=== PATIENT | male | born 1945 | race Caucasian/White ===

== ENCOUNTER 2019-07-19 07:31 | Inpatient (IN) ==
--- NOTE | 2019-07-19 07:49 | History & Physical Report ---
Date of Encounter: 07/19/19 Time of Encounter: 07:48 24 Hour HP Update - Instructions Instructions: If the History and Physical is less than 30 days old and was completed prior to A.M. admission and or procedure and has NOT been updated on calendar day of procedure please complete this update prior to performing procedure. - Update Patient reports changes in Medical Condition: No Changes in examination, assessment, or condition: No Changes in Medication: No Preop tests/diagnostics Reviewed: Yes Surgery Remains Indicated: Yes Consent for Planned Operative Procedure(s) Verified: Yes - Pre-Operative Checklist Preoperative Checklist Indicated: No Prophylactic Antibiotic Ordered: Yes Is VTE Prophylaxis Indicated?: Yes
[2019-07-19] MEDS ORDERED: Albuterol 2.5 MG/3 ML NEBULIZER IH ONE (07:51)
[2019-07-19] MEDS ORDERED: CeFAZolin Syr 2,000MG/20 ML 2,000 MG/20 ML SYRINGE IVPB ONE (07:51)
[2019-07-19] MEDS ORDERED: ROPIVACAINE/PF/NS 0.25% 1 EACH SYRINGE INTRAART ONE (07:55)
[2019-07-19] MEDS ORDERED: Ropivacaine/PF 0.5% 30 ML VIAL ONE (07:55)
[2019-07-19] MEDS ORDERED: Ringers Solution, Lactated 1,000 ML IVC SCH ×2 (08:00→11:54)
[2019-07-19] MEDS ORDERED: Famotidine 20 MG/2 ML VIAL IVP ONE (08:15)
--- NOTE | 2019-07-19 08:15 | Anesthesia Evaluation PreOp ---
Date of Encounter: 07/19/19 Time of Encounter: 08:15 - Past History Planned Operation: R-total shoulder REVERSE & Open Biceps Cardiac History: HTN, Hyperlipidemia, Arrhythmia ("irregular heartbeat"/Paroxysmal tachycardia) Pulmonary History: Smoker (1PPD X 60yrs) [employer] History: Denies Any Significant HX Other Medical History: Diabetes Type II (Denies but states he is HYPOglycemic), GERD, Other (Hx Divertics) Anesthesia History: No Prior Anesthetic Complications, Past Anesthesia (Colonoscopy w/diverticulosis, L-IHR, Excision R-shoulder, BCC excisions) Medications and Allergies Calcium Carbonate [Calcium] 500 mg PO DAILY 07/19/19 [History] Diltiazem HCl [Cardizem LA] 240 mg PO DAILY 07/19/19 [History] Naproxen [EC-Naproxen] 500 mg PO BID PRN 07/19/19 [History] Pravastatin Sodium [Pravachol] 80 mg PO DAILY 07/19/19 [History] Ranitidine HCl [Zantac] 300 mg BID 07/19/19 [History] hydroCHLOROthiazide [Hydrochlorothiazide] 25 mg PO DAILY 07/19/19 [History] Allergy/AdvReac Type Severity Reaction Status Date / Time No Known Allergies Allergy Verified 07/17/19 09:11 - Meds/Allergy Pre-op Review Medications Reviewed: Yes Allergies Reviewed: Yes Beta Blockers on Current Med List: No Anesthesia Results - Labs Laboratory Tests 05/11/19 07/17/19 07/17/19 10:00 09:34 09:34 WBC 8.7 Hgb 16.1 Hct 48.2 Plt Count 201 PT 12.4 H INR 1.1 APTT 36.0 Sodium Potassium Chloride Carbon Dioxide BUN Est GFR (Non-Af Amer) Glucose 101 07/17/19 09:34 WBC Hgb Hct Plt Count PT INR APTT Sodium 139 Potassium 3.8 Chloride 106 Carbon Dioxide 27 BUN 22 Est GFR (Non-Af Amer) > 60 Glucose - Imaging EKG: report reviewed (66bpm - SR w/freq. Supraventricular premature complexes. Possible RV conduction delay. Moderate ST depresion) Anesthesia Exam O2 Sat Height 1.7 m Weight 71.214 kg O2 Sat by Pulse Oximetry 96 Vital Signs Temp Pulse Resp BP Pulse Ox 98.3 F 58 18 148/80 96 07/19/19 07:51 07/19/19 07:51 07/19/19 07:51 07/19/19 07:51 07/19/19 07:51 Height: 5'7" Weight: 157# BMI = 25 NPO (# of Hours): MNOc - HEENT Pupil (Motor): Pupils equal, EOMI Mallampati: II Teeth: Edentulous Oral Opening: Greater than 3 - [employer] LOC: Oriented [employer] Motor: Normal RUE, Normal LUE, Normal RLE, Normal LLE, Normal Face [employer] Sensory: Normal: RUE, LUE, RLE, LLE, Face - Cardiac Rhythm: Regular Murmur: None - Pulmonary Breath Sounds: bilateral Clear Respiratory Effort: Symmetrical Anesthesia Assess/Plan ASA Score: 3 Level of consciousness: Cooperative, Oriented, Tranquil Anesthetic Plan: General, Regional Nerve Block Regional Nerve Block Plan: Supraclavicular Monitoring Plan: Standard Monitors Recovery Plan: PACU Anes Supervising Prov Stmt: Pt seen/evaluated, R&B discussed, questions answered and consent obtained. Emmanuel Quiles MD
[2019-07-19] MEDS ORDERED: Acetaminophen IV 1,000 MG/100 ML INFUS..BTL IVPB ONE (08:16)
[2019-07-19] MEDS ORDERED: Pregabalin 75 MG CAPSULE PO ONE (08:16)
[2019-07-19] MEDS ORDERED: *HR* HYDROmorphone 2 MG TABLET PO PRN (08:17)
[2019-07-19] MEDS ORDERED: *HR* Labetalol 20 MG/4 ML SYRINGE IVP PRN (08:17)
[2019-07-19] MEDS ORDERED: *HR* OxyCODONE Immed Rel 5 MG TABLET PO PRN ×2 (08:17→11:54)
[2019-07-19] MEDS ORDERED: *HR* HYDROmorphone (PF) 1 MG/ML SYRINGE IVP PRN (08:17)
[2019-07-19] MEDS ORDERED: *HR* Promethazine 25 MG/ML VIAL IVP PRN (08:20)
[2019-07-19] MEDS ORDERED: *HR* Propofol 200 MG/20 ML VIAL IVP ONE (08:58)
[2019-07-19] MEDS ORDERED: *HR* Midazolam HCl 2 MG/2 ML VIAL ONE (09:11)
[2019-07-19] MEDS ORDERED: Ethanol\\Acetic Acid\\Na Ace\\Ben 1,000 ML IRRIG.SOLN IR ONE (09:27)
--- NOTE | 2019-07-19 09:33 | Anesthesia Procedures ---
Date of Encounter: 07/19/19 Time of Encounter: Procedures: Anesthesia - Nerve Block Procedure Date: 07/19/19 Time: :20 Surgical Procedure: right total shoulder replacement Checklist: Correct Patient Identifier, Correct procedure, History checked Correct side: Right Blood Thinner: No Monitor Applied: EKG, BP, Pulse Oximetry Supplemental Oxygen via Nasal Cannula (L/min): 2 Sedation: Versed (mg): 2 Indication: Post Op Analgesia Block Type: Supraclavicular Catheter placed: No Sterile Technique: Yes Ultrasound used: Yes Anatomy identified: Yes Visual spread of Local: Yes Blood on Needle Aspiration: No Smooth Injection of Local: Yes Pain with Injection of Local: No Prep: Chlorhexadine Needle: 22 x 50 mm Stimuplex Local: Ropivacaine (0.5% ropivacaine) Volume (cc): 30 Number of Attempts: 1 Complications: None/effective block Vitals: see nursing vitals
[2019-07-19] MEDS ORDERED: Ondansetron 4 MG/2 ML VIAL ONE (10:05)
[2019-07-19] MEDS ORDERED: Dexamethasone 4 MG/ML VIAL ONE (10:05)
[2019-07-19] MEDS ORDERED: Lidocaine -MPF 2% 2 ML VIAL ONE (10:08)
[2019-07-19] MEDS ORDERED: EPHEDrine 50 MG/ML VIAL ONE (10:12)
--- NOTE | 2019-07-19 10:42 | Orthopedic Operative Note ---
Date of procedure: 07/19/19 Pre-op diagnosis: Shoulder cuff tear arthropathy biceps tear right Post-op diagnosis: same Procedure: Procedure: Total Shoulder Replacment Reverse, right Estimated blood loss: 50 cc Hardware: Metal and polyethylene replacement: Arthrex 28, +4 , 30 mm post glenoid baseplate, 4 locking 5.5 screw, 42+4 glenosphere, 10 [place] humeral stem, poly insert 3 Exam Under anesthesia: Full motion no instability Procedural Notes: Reparable rotator cuff tear patient with a biceps rupture tendon was not visible within the incision, decision was made not to go exploring for fear of causing more surgical trauma. Operative procedure: The patient was brought to the operating room and placed on the operating room table. After general anesthesia was administered the operative shoulder was examined. Findings were noted. The patient was placed in the modified beachchair position. All pressure points were padded appropriately. And the head was stabilized in the neutral position. The operative extremity was prepped and draped in the sterile surgical fashion. The patient received IV antibiotics prior to skin incision. A standard deltopectoral approach was made to the operative shoulder. Incision was made to the skin and subcutaneous tissue,hemo stasis was obtained with Bovie cautery. Using careful blunt dissection the cephalic vein was identified and mobilized medially. The deltopectoral interval was developed and the clavipectoral fascia was incised. The subscap was released off the lesser tuberosity and tagged with #2 FiberWire suture subscap was irreparable. Bicipital groove was opened up, the long head of the biceps was not identifiable within the groove. Decision was made not to dissect distally for fear of causing more surgical trauma. The humerus was dislocated patient noted to have irreparable tear supraspinatus tendon, and the humeral cut was made along the anatomic neck. Anterior and posterior Bankart retractors were placed to expose the glenoid. The glenoid guide was seated and the centering hole was made. It was reamed with the appropriate reamer. The baseplate was seated and secured with 4 locking 5.5 screw. The baseplate was irrigated and dried and the Glenosphere was seated and secured with the Ayala taper. The Ayala taper was tested and found to be secure, glenosphere fixation was secondarily secured with the central screw. The humerus was redislocated and prepared with the diaphyseal reamers, followed by a broaching process up to the appropriate size [place] stem in the patient's anatomic version. The metaphyseal reamer was then utilized. Trial reduction found the shoulder to be relocatable. Trial components were removed and the [place] stem was impacted in place in the patient's anatomic version. Trial reduction found the shoulder to be relocatable and stable with the appropriate 3 poly. Trial component was removed and the real implant was seated and secured the shoulder was reduced. The shoulder had excellent motion and excellent stability and no evidence of dislocation. The deep tissue was irrigated with pulse irrigation. The PA close the shoulder. The deltopectoral interval was closed with a running #1 PDS suture, subcutaneous tissue was irrigated and closed with 0 PDS suture, the skin was closed with Dermabond. The patient was placed in a sterile dressing, abduction brace and extubated. The patient was then transferred to the recovery room in stable condition. Anesthesia: GETA Surgeon: Jasbir Mcdowell Was there an family medicine physician assistant present: Yes Search Director: Marcello Porter Estimated blood loss (cc): 50 Condition: stable Disposition: PACU
--- NOTE | 2019-07-19 11:22 | Discharge Summary ---
Orders not resulted at time of discharge: Pending orders 07/19/19 10:41 Surgical Pathology [PTH] Routine Date of Encounter: 07/19/19 Time of Encounter: 16:30 - Discharge Diagnosis (1) Rotator cuff tear arthropathy of right shoulder Priority: Primary Status: Chronic (2) Tear of right biceps muscle Priority: Primary Status: Chronic Qualifiers: Encounter type: subsequent encounter Qualified Code(s): S46.211D - Strain of muscle, fascia and tendon of other parts of biceps, right arm, subsequent en counter (3) Status post total replacement of right shoulder Priority: Primary Status: Acute (4) HTN (hypertension) Priority: Secondary Status: Chronic Qualifiers: Hypertension type: unspecified Qualified Code(s): I10 - Essential (primary) hypertension (5) Paroxysmal tachycardia Priority: Secondary Status: Chronic (6) Nicotine dependence Priority: Secondary Status: Chronic Qualifiers: Nicotine product type: unspecified Substance use status: uncomplicated Qualified Code(s): F17.200 - Nicotine dependence, unspecified, uncomplicated (7) HLD (hyperlipidemia) Priority: Secondary Status: Chronic Qualifiers: Hyperlipidemia type: unspecified Qualified Code(s): E78.5 - Hyperlipidemia, unspecified (8) GERD (gastroesophageal reflux disease) Priority: Secondary Status: Chronic Qualifiers: Esophagitis presence: esophagitis presence not specified Qualified Code(s): K21.9 - Gastro-esophageal reflux disease without esophagitis - Hospital Course Hospital course: Mr. Chugn is a 74 year old male s/p Total Shoulder Replacment Reverse, right [Shoulder cuff tear arthropathy biceps tear right] 07/19/19 Patient seen at bedside. Son, [id number], and spouse at bedside. A&Ox3 Dressing and incision c/d/i No calf tenderness, erythema, or warmth. Neurovascularly intact b/l LE. Labwork, vitals, and medications reviewed. Pain control: Adequate Participating in therapy. All questions and concerns addressed. Educated on use of incentive spirometer, ambulation, and hydration. Patient educated on post-operative restrictions and care. Addressed: see above. The patient's postoperative course was uneventful. Progressed from intravenous analgesic needs to oral analgesic needs only. Remained neurovascularly intact and mobilized satisfactorily. All radiographic studies were satisfactory. Patient course and disposition discussed with Dr. Mcdowell. Patient is discharged to home with plan for rehabilitation and outpatient orthopedic follow up has been arranged. - Time Spent with Patient Total time spent providing and/or coordinating discharge services: - Discharge Medications Prescriptions: New Docusate Sodium [Colace] 100 mg PO BID 5 Days #10 capsule Acetaminophen [Non-Aspirin Extra Strength] 500 mg PO Q6H PRN 7 Days #28 tablet PRN Reason: Mild To Moderate Pain OxyCODONE Immed Rel [Roxicodone 5 MG] 5 mg PO Q6HR PRN 5 Days #20 tablet PRN Reason: Severe Pain Continued Diltiazem HCl [Cardizem LA] 240 mg PO DAILY hydroCHLOROthiazide [Hydrochlorothiazide] 25 mg PO DAILY Naproxen [EC-Naproxen] 500 mg PO BID PRN PRN Reason: Pain Ranitidine HCl [Zantac] 300 mg BID Pravastatin Sodium [Pravachol] 80 mg PO DAILY Calcium Carbonate [Calcium] 500 mg PO DAILY Home Medications: Acetaminophen [Non-Aspirin Extra Strength] 500 mg PO Q6H PRN 7 Days #28 tablet 07/19/19 [Rx] Calcium Carbonate [Calcium] 500 mg PO DAILY 07/19/19 [History] Diltiazem HCl [Cardizem LA] 240 mg PO DAILY 07/19/19 [History] Docusate Sodium [Colace] 100 mg PO BID 5 Days #10 capsule 07/19/19 [Rx] Naproxen [EC-Naproxen] 500 mg PO BID PRN 07/19/19 [History] OxyCODONE Immed Rel [Roxicodone 5 MG] 5 mg PO Q6HR PRN 5 Days #20 tablet 07/19/19 [Rx] Pravastatin Sodium [Pravachol] 80 mg PO DAILY 07/19/19 [History] Ranitidine HCl [Zantac] 300 mg BID 07/19/19 [History] hydroCHLOROthiazide [Hydrochlorothiazide] 25 mg PO DAILY 07/19/19 [History] Allergies/Adverse Reactions: Allergy/AdvReac Type Severity Reaction Status Date / Time No Known Allergies Allergy Verified 07/17/19 09:11 Date of admission: 07/19/19 Primary care physician: Rabia Dominique CNP Discharging clinician: Jasbir Mcdowell Anticipated date of discharge: 07/19/19 - VTE Documentation of Mechanical Device: Venous foot pump, device - Patient Status Disposition: Home, Self-Care Condition: Good Functional capacity at discharge: independent ambulation Overall status at discharge: patient is progressing back to baseline - Discharge Instructions Follow Up With: Jasbir Mcdowell MD [Partnered Physician] - 08/16/19 5:15 pm Angi Childs CNP [Advanced Practice Nurse] - 07/27/19 3:00 pm Rabia Dominique CNP [Primary Care Provider] - Additional Instructions: Discharge Instructions: Total Shoulder Please call [facility] ([phone]), your Primary Care Physician, or report to the Emergency Room if you have any of the following symptoms: Nausea, vomiting, fever greater that 101.5, swelling, chest pain, shortness of breath, increased pain/redness/drainage/odor for your incision site, numbness/tingling, or any other concerning symptoms. ACTIVITY: Always keep your arm in the sling. Do not raise your arm away from your body. Do not use your arm to help with getting in or out of bed. No weig ht bearing permitted. Only perform those exercises given to you by your therapist. Incentive Spirometer 10 times an hour. MEDICATIONS: Upon discharge resume your home medications. Take all the medications as prescribed. Take a stool softener if taking narcotic pain medications. Stool softeners are only effective if you drink enough fluids. Drink 6-8 glass of water or fluids a day, unless this is not allowed for another health problem. Despite using stool softeners, if you haven't had a bowel movement in 3 days, please switch to a gentle laxative. Gentle laxatives are sold over the counter. You should have a bowel movement within 24 hours, if not call the office. You will be discharged from the hospital with a prescription for pain medication. You are encouraged to decrease the use of narcotic pain medication as tolerated. Should you require a refill, please call the office. [facility] prescribes narcotic pain medication for only 4-6 weeks after surgery. If you require pain medication beyond this time period, you may be referred to your Primary Care Physician or to the Pain Clinic for further evaluation. Plan ahead for refills on pain medication as many narcotics either need to be picked up at the office or mailed. It is best to call 48-72 hours in advance of needing a prescription refill so you don't run out of medication. To help control the post-operative pain, you may take NSAIDs (Aleve,Advil, Motrin, Ibuprofen, Naprosyn) or Tylenol as prescribed on the bottle in addition to the pain medication. WOUND CARE: Leave the dressing on for 7-10 days. You may change the dressing if it becomes saturated greater than 50%. Do not get the dressing wet at anytime. Wash your hands with antibacterial soap, rinse and dry prior to any wound care. If you have lacey the visiting nurse or rehab facility can remove the stapes 10-14 days after surgery and place steri-strips across the wound. Leave the steri-strips in place until they fall off on their own. You may let water from the shower run on top of the steri-strips. If you do not have a visiting nurse or rehab facility, you will need to return to the office at 10-14 days for the lacey to be removed. If you have itching or redness around the dressing call the office. FOLLOW-UP: Please follow up with your surgeon in the orthopedic clinic, as scheduled - Diet and Activity Activity: as per physical therapy Diet: advance to your usual diet
[2019-07-19 11:42] LABS: Hemoglobin 14.7 g/dL (12.9-16.9)
--- NOTE | 2019-07-19 11:47 | Anesthesia Evaluation Post Op ---
Date of Encounter: 07/19/19 Time of Encounter: 11:37 - Vital Signs Vital Signs: vss - Lungs Lungs: Clear Ascult./Percussion - Airway Airway: Non-obstructed - Mental Status Mental Status: Alert & Oriented, Answers Appropriately - Pain Pain Scale: 0 Pain Scale used: Numeric (1 - 10) - Nausea Vomiting Nausea Vomiting: Not Present - Hydration Hydration: Ice chips - Discharge PostOp Status: Transfer Patient to floor
[2019-07-19] MEDS ORDERED: hydroCHLOROthiazide 25 MG TABLET PO SCH (11:54)
[2019-07-19] MEDS ORDERED: Diltiazem CD (24hr) 240 MG CAPSULE PO SCH (11:54)
[2019-07-19] MEDS ORDERED: Famotidine 20 MG TABLET PO SCH ×2 (11:54→21:00)
[2019-07-19] MEDS ORDERED: MOM Conc 10 ML UD.LIQ PO PRN (11:54)
[2019-07-19] MEDS ORDERED: Naloxone 0.4 MG/ML INJ IVP PRN (11:54)
[2019-07-19] MEDS ORDERED: Temazepam 15 MG CAPSULE PO PRN (11:54)
[2019-07-19] MEDS ORDERED: traMADol 50 MG TABLET PO PRN (11:54)
[2019-07-19] MEDS ORDERED: Sennosides 8.6 MG TABLET PO PRN (11:54)
[2019-07-19] MEDS ORDERED: Ondansetron 4 MG/2 ML VIAL IVP PRN (11:54)
[2019-07-19] MEDS ORDERED: *HR* OxyCODONE/APAP 5/325 TABLET PO PRN (11:54)
[2019-07-19] MEDS ORDERED: Dextrose Gel 15 GM/37.5 ML TUBE PO PRN ×2 (12:12)
[2019-07-19] MEDS ORDERED: *HR* Dextrose 50 % in Water (Syg) 50 ML SYRINGE IVP PRN (12:12)
[2019-07-19] MEDS ORDERED: D5% in Water 1,000 ML IVC PRN (12:12)
[2019-07-19 14:52] VITALS: BP 103/64
[2019-07-19] MEDS ORDERED: Insulin LISPRO 300 UNITS/3 ML VIAL SQ SCH ×2 (16:30→21:00)
[2019-07-19] MEDS ORDERED: *HR* Enoxaparin 30 MG/0.3 ML SYRINGE SQ SCH ×2 (18:00)
== END 2019-07-19 19:57 | disposition home or self-care (01) | DRG 483 ==
LOC: SAMDAY 07:31 → 3NENU 12:03
PROVIDERS: ADMIT Orthopaedic Surgery; ATTEND Orthopaedic Surgery

== ENCOUNTER 2022-07-04 08:04 | Inpatient (IN) ==
[2022-07-04] MEDS ORDERED: methylPREDNISolone 125 MG/2 ML VIAL IVP ONE (08:37)
[2022-07-04] MEDS: Ipratropium/Albuterol Neb 3 ML IH PRN ×2 (08:54→13:01)
[2022-07-04 08:58] LABS: Basophils # 0.1 K/mcL (0.0-0.2); Basophils % 0.6 %; Eosinophils # 0.1 K/mcL (0.0-0.6); Eosinophils % 1.3 %; Hemoglobin 14.9 g/dL (12.9-16.9); Immature Granulocytes % 0.6 % (0-4); Lymphocytes # 1.5 K/mcL (0.6-4.6); Lymphocytes % 15.5 %; Mean Corpuscular HGB Conc 33.9 g/dL (31.6-35.5); Mean Corpuscular Hemoglobin 29.2 pg (28.0-33.3); Mean Corpuscular Volume 86.3 fL (83.0-100.0); Mean Platelet Volume 10.8 fL (9.4-12.4); Monocytes % 10.7 %; Neutrophils # 6.9 K/mcL (1.6-8.9); Platelet Count 263 K/mcL (140-400); Red Cell Distribution Width 14.6 % (11.5-14.5); Segmented Neutrophils % 71.3 %; White Blood Count 9.7 K/mcL (4.3-11.1)
[2022-07-04] MEDS ORDERED: 0.9 % Sodium Chloride 500 ML IVC ONE (09:01)
[2022-07-04] MEDS ORDERED: Iopamidol - 370 500 ML MLS IVP ONE (09:02)
[2022-07-04 09:21] LABS: Albumin 3.9 g/dL (3.5-5.7); Albumin/Globulin Ratio 1.6 (1.1-2.2); Bilirubin,Direct 0.1 mg/dL (0.0-0.2); Bilirubin,Indirect 0.3 mg/dL (0.0-1.0); Bilirubin,Total 0.4 mg/dL (0.3-1.0); Calcium 9.2 mg/dL (8.6-10.3); Globulin 2.4 g/dL (2.4-3.5); Potassium 3.7 mEq/L (3.5-5.1); Total Protein 6.3 g/dL (6.4-8.9); Troponin I 0.03 ng/mL (< 0.04)
[2022-07-04] MEDS ORDERED: Cefepime HCl 2,000 MG in 0.9 % Sodium Chloride 10 ML IVP ONE (09:47)
[2022-07-04 10:04] LABS: INR 1.2; Prothrombin Time 13.5 Seconds (9.4-12.1)
[2022-07-04 10:07] LABS: VBG HCO3 27 mEq/L (21-27); VBG PCO2 52 mmHg (41-51); VBG PH 7.33 pH Units (7.32-7.42); VBG PO2 44 mmHg (25-50)
[2022-07-04] MEDS ORDERED: MetroNIDAZOLE 500 MG/100 ML 500 MG/100 ML BAG IVPB ONE (10:07)
[2022-07-04] MEDS ORDERED: Naloxone 0.4 MG/ML INJ IVP PRN (15:27)
[2022-07-04] MEDS ORDERED: D5% in Water 1,000 ML IVC PRN (15:33)
[2022-07-04] MEDS ORDERED: *HR* Dextrose 50 % in Water (Syg) 50 ML SYRINGE IVP PRN (15:33)
[2022-07-04] MEDS ORDERED: Dextrose Gel 15 GM/37.5 ML TUBE PO PRN ×2 (15:33)
[2022-07-04] MEDS: Piperacillin/Tazobactam 3.375 GM in 0.9 % Sodium Chloride Mini Bag 100 ML IVPB SCH ×2 (16:34→23:47)
[2022-07-04] MEDS: Insulin LISPRO 300 UNITS/3 ML VIAL SUBQ SCH (16:34)
[2022-07-04] MEDS: Pantoprazole 40 MG VIAL IVP SCH (16:34)
[2022-07-04] MEDS ORDERED: Potassium Phosphate 44 MEQ in 0.9 % Sodium Chloride 250 ML IVPB PRN (17:48)
[2022-07-04] MEDS ORDERED: Calcium Gluconate 1gm/50mL 1 GM/50 ML BAG IVPB PRN (17:48)
[2022-07-04 18:06] LABS: VBG Ionized Calcium 1.14 mmol/L (1.15-1.35)
[2022-07-04] MEDS ORDERED: Albuterol 2.5 MG/3 ML NEBULIZER IH PRN (18:43)
[2022-07-04] MEDS: Ipratropium/Albuterol Neb 3 ML IH SCH ×2 (19:59→20:04)
[2022-07-04 20:44] LABS: Estimated Average Glucose 131 mg/dl; Hemoglobin A1C 6.2 %
[2022-07-04] MEDS ORDERED: Insulin LISPRO 300 UNITS/3 ML VIAL SUBQ SCH (21:00)
[2022-07-04] MEDS: MethylPREDNISolone 40 MG/ML VIAL IVP SCH (23:47)
[2022-07-05] MEDS: Ipratropium/Albuterol Neb 3 ML IH SCH ×4 (03:47→21:57)
[2022-07-05 04:12] LABS: Basophils % 0.2 %; Immature Granulocytes % 0.8 % (0-4); Lymphocytes # 0.8 K/mcL (0.6-4.6); Lymphocytes % 12.8 %; Mean Corpuscular HGB Conc 33.2 g/dL (31.6-35.5); Mean Corpuscular Hemoglobin 28.6 pg (28.0-33.3); Mean Platelet Volume 10.8 fL (9.4-12.4); Monocytes # 0.2 K/mcL (0.0-1.3); Monocytes % 3.4 %; Neutrophils # 5.4 K/mcL (1.6-8.9); Platelet Count 215 K/mcL (140-400); Red Cell Distribution Width 14.6 % (11.5-14.5); Segmented Neutrophils % 82.8 %; White Blood Count 6.5 K/mcL (4.3-11.1)
[2022-07-05 04:13] LABS: Hemoglobin 12.3 g/dL (12.9-16.9)
[2022-07-05 04:16] LABS: VBG Ionized Calcium 1.09 mmol/L (1.15-1.35)
[2022-07-05 04:34] LABS: Alanine Aminotransferase 14 Units/L (7-52); Albumin 3.5 g/dL (3.5-5.7); Albumin/Globulin Ratio 1.5 (1.1-2.2); Alkaline Phosphatase 63 Units/L (34-104); Aspartate Amino Transferase 12 Units/L (13-39); BUN/Creatinine Ratio 24 (6-26); Bilirubin,Direct 0.1 mg/dL (0.0-0.2); Bilirubin,Indirect 0.4 mg/dL (0.0-1.0); Bilirubin,Total 0.5 mg/dL (0.3-1.0); Blood Urea Nitrogen 20 mg/dL (8-23); Calcium 8.5 mg/dL (8.6-10.3); Carbon Dioxide 24 mEq/L (23-29); Chloride 106 mEq/L (98-107); Globulin 2.3 g/dL (2.4-3.5); Glucose 162 mg/dL (70-105); Osmolality,Calculated 288 (280-300); Phosphorous 2.5 mg/dL (2.7-4.5); Potassium 4.3 mEq/L (3.5-5.1); Sodium 136 mEq/L (136-145); Total Protein 5.8 g/dL (6.4-8.9)
[2022-07-05] MEDS: MethylPREDNISolone 40 MG/ML VIAL IVP SCH ×3 (05:51→16:03)
[2022-07-05] MEDS: Piperacillin/Tazobactam 3.375 GM in 0.9 % Sodium Chloride Mini Bag 100 ML IVPB SCH ×2 (07:20→16:02)
[2022-07-05] MEDS: Pantoprazole 40 MG VIAL IVP SCH (08:32)
[2022-07-05] MEDS: Insulin LISPRO 300 UNITS/3 ML VIAL SUBQ SCH ×4 (08:41→20:42)
[2022-07-05] MEDS ORDERED: Potassium Phosphate 44 MEQ in 0.9 % Sodium Chloride 250 ML IVPB PRN (10:58)
[2022-07-05] MEDS ORDERED: Naloxone 0.4 MG/ML INJ IVP PRN (10:58)
[2022-07-05] MEDS ORDERED: Calcium Gluconate 1gm/50mL 1 GM/50 ML BAG IVPB PRN (10:58)
[2022-07-05] MEDS ORDERED: Ipratropium/Albuterol Neb 3 ML IH PRN (10:58)
[2022-07-05] MEDS ORDERED: Dextrose Gel 15 GM/37.5 ML TUBE PO PRN ×2 (10:58)
[2022-07-05] MEDS ORDERED: Albuterol 2.5 MG/3 ML NEBULIZER IH PRN (10:58)
[2022-07-05] MEDS ORDERED: *HR* Dextrose 50 % in Water (Syg) 50 ML SYRINGE IVP PRN (10:58)
[2022-07-05] MEDS ORDERED: GuaiFENesin Liq 200 MG/10 ML UDC PO PRN ×2 (10:58)
[2022-07-05] MEDS ORDERED: D5% in Water 1,000 ML IVC PRN (10:58)
[2022-07-05] MEDS ORDERED: Fluticasone Propionate Nasal 50 MCG/SPRAY BOTTLE NS PRN (10:58)
[2022-07-05] MEDS: DilTIAZem CD (24hr) 240 MG CAP.ER.24H PO SCH (12:31)
[2022-07-06] MEDS: MethylPREDNISolone 40 MG/ML VIAL IVP SCH ×5 (00:23→22:13)
[2022-07-06] MEDS: Piperacillin/Tazobactam 3.375 GM in 0.9 % Sodium Chloride Mini Bag 100 ML IVPB SCH ×3 (00:24→17:36)
[2022-07-06] MEDS: Ipratropium/Albuterol Neb 3 ML IH SCH ×4 (03:51→21:22)
[2022-07-06 04:03] LABS: Basophils % 0.1 %; Hematocrit 35.1 % (37.5-50.1); Hemoglobin 11.6 g/dL (12.9-16.9); Immature Granulocytes % 0.7 % (0-4); Lymphocytes # 0.9 K/mcL (0.6-4.6); Lymphocytes % 5.6 %; Mean Corpuscular Hemoglobin 28.8 pg (28.0-33.3); Mean Corpuscular Volume 87.1 fL (83.0-100.0); Mean Platelet Volume 11.2 fL (9.4-12.4); Monocytes # 0.5 K/mcL (0.0-1.3); Monocytes % 2.9 %; Neutrophils # 14.6 K/mcL (1.6-8.9); Platelet Count 208 K/mcL (140-400); Red Blood Count 4.03 M/mcL (4.19-5.50); Segmented Neutrophils % 90.7 %
[2022-07-06 04:09] LABS: White Blood Count 16.1 K/mcL (4.3-11.1)
[2022-07-06 04:25] LABS: Albumin 3.3 g/dL (3.5-5.7); Albumin/Globulin Ratio 1.7 (1.1-2.2); Bilirubin,Direct 0.1 mg/dL (0.0-0.2); Bilirubin,Indirect 0.2 mg/dL (0.0-1.0); Bilirubin,Total 0.3 mg/dL (0.3-1.0); Calcium 8.8 mg/dL (8.6-10.3); Magnesium 2.2 mg/dL (1.6-2.6); Phosphorous 2.6 mg/dL (2.7-4.5); Total Protein 5.3 g/dL (6.4-8.9)
[2022-07-06] MEDS ORDERED: Pantoprazole 40 MG VIAL IVP SCH (06:30)
[2022-07-06] MEDS: Multivit/Ca/Min/Fe/FA 1 TAB TABLET PO SCH (08:49)
[2022-07-06] MEDS: DilTIAZem CD (24hr) 240 MG CAP.ER.24H PO SCH (08:49)
[2022-07-06] MEDS: Insulin LISPRO 300 UNITS/3 ML VIAL SUBQ SCH ×4 (09:27→22:13)
[2022-07-06] MEDS ORDERED: Gadolinium Contrast Agent (WT Based) IV PRN (16:37)
[2022-07-07] MEDS ORDERED: D5% in 0.45% NACL 1,000 ML IVC SCH (00:01)
[2022-07-07] MEDS: Piperacillin/Tazobactam 3.375 GM in 0.9 % Sodium Chloride Mini Bag 100 ML IVPB SCH ×4 (00:13→21:00)
[2022-07-07] MEDS: MethylPREDNISolone 40 MG/ML VIAL IVP SCH ×2 (03:25→13:30)
[2022-07-07] MEDS: Ipratropium/Albuterol Neb 3 ML IH SCH ×4 (03:40→22:12)
[2022-07-07 04:48] LABS: Basophils % 0.1 %; Hematocrit 34.6 % (37.5-50.1); Hemoglobin 11.4 g/dL (12.9-16.9); Lymphocytes # 1.1 K/mcL (0.6-4.6); Lymphocytes % 6.7 %; Mean Corpuscular HGB Conc 32.9 g/dL (31.6-35.5); Mean Corpuscular Hemoglobin 28.8 pg (28.0-33.3); Mean Corpuscular Volume 87.4 fL (83.0-100.0); Mean Platelet Volume 11.2 fL (9.4-12.4); Monocytes # 0.2 K/mcL (0.0-1.3); Monocytes % 1.5 %; Neutrophils # 14.5 K/mcL (1.6-8.9); Platelet Count 191 K/mcL (140-400); Red Blood Count 3.96 M/mcL (4.19-5.50); Red Cell Distribution Width 15.1 % (11.5-14.5); Segmented Neutrophils % 90.7 %
[2022-07-07 05:08] LABS: Albumin 3.2 g/dL (3.5-5.7); Albumin/Globulin Ratio 1.6 (1.1-2.2); Bilirubin,Direct 0.1 mg/dL (0.0-0.2); Bilirubin,Indirect 0.2 mg/dL (0.0-1.0); Bilirubin,Total 0.3 mg/dL (0.3-1.0); Calcium 8.5 mg/dL (8.6-10.3); Magnesium 2.3 mg/dL (1.6-2.6); Phosphorous 2.5 mg/dL (2.7-4.5); Potassium 4.2 mEq/L (3.5-5.1); Total Protein 5.2 g/dL (6.4-8.9)
[2022-07-07] MEDS: Multivit/Ca/Min/Fe/FA 1 TAB TABLET PO SCH ×2 (08:10→14:13)
[2022-07-07] MEDS: DilTIAZem CD (24hr) 240 MG CAP.ER.24H PO SCH (08:10)
[2022-07-07] MEDS: Insulin LISPRO 300 UNITS/3 ML VIAL SUBQ SCH ×4 (08:13→20:59)
[2022-07-07] MEDS ORDERED: Albuterol 2.5 MG/3 ML NEBULIZER IH PRN (08:29)
[2022-07-07] MEDS ORDERED: Ondansetron 4 MG/2 ML VIAL IVP PRN (08:29)
[2022-07-07] MEDS ORDERED: *HR* Propofol 200 MG/20 ML VIAL IVP ONE ×2 (10:19→12:32)
[2022-07-07] MEDS ORDERED: *HR* FentaNYL (PF) 100 MCG/2 ML VIAL ONE (10:20)
[2022-07-07] MEDS ORDERED: Ondansetron 4 MG/2 ML VIAL ONE (10:20)
[2022-07-07] MEDS ORDERED: Lidocaine -MPF 2% 5 ML VIAL ONE (10:20)
[2022-07-07] MEDS ORDERED: *HR* Rocuronium Bromide 50 MG/5 ML VIAL ONE (10:20)
[2022-07-07] MEDS ORDERED: *HR* Succinylcholine 200 MG/10 ML VIAL IVP ONE (10:20)
[2022-07-07] MEDS ORDERED: *HR* Metoprolol 5 MG/5 ML VIAL IVP ONE ×2 (11:55→12:02)
[2022-07-07] MEDS ORDERED: Levalbuterol Neb 1.25 MG/3 ML IH PRN (12:10)
[2022-07-07] MEDS ORDERED: *HR* Digoxin 0.5 MG/2 ML AMPUL IVP ONE (14:56)
[2022-07-07] MEDS: DilTIAZem 50 MG/50 ML IV.SOLN IVC SCH ×2 (17:42→22:20)
[2022-07-07] MEDS: Pantoprazole 40 MG VIAL IVP SCH (21:19)
[2022-07-08] MEDS: DilTIAZem 50 MG/50 ML IV.SOLN IVC SCH ×5 (03:04→23:51)
[2022-07-08] MEDS: Ipratropium/Albuterol Neb 3 ML IH SCH ×4 (04:24→22:18)
[2022-07-08] MEDS: Piperacillin/Tazobactam 3.375 GM in 0.9 % Sodium Chloride Mini Bag 100 ML IVPB SCH (05:47)
[2022-07-08 06:24] LABS: Basophils % 0.1 %; Hematocrit 36.2 % (37.5-50.1); Hemoglobin 11.8 g/dL (12.9-16.9); Immature Granulocytes % 0.7 % (0-4); Lymphocytes # 1.7 K/mcL (0.6-4.6); Lymphocytes % 10.4 %; Mean Corpuscular HGB Conc 32.6 g/dL (31.6-35.5); Mean Corpuscular Volume 88.9 fL (83.0-100.0); Mean Platelet Volume 11.3 fL (9.4-12.4); Monocytes # 0.8 K/mcL (0.0-1.3); Monocytes % 4.8 %; Neutrophils # 13.9 K/mcL (1.6-8.9); Platelet Count 196 K/mcL (140-400); Red Blood Count 4.07 M/mcL (4.19-5.50); Red Cell Distribution Width 15.6 % (11.5-14.5); White Blood Count 16.5 K/mcL (4.3-11.1)
[2022-07-08 06:44] LABS: Albumin 3.2 g/dL (3.5-5.7); Albumin/Globulin Ratio 1.7 (1.1-2.2); Bilirubin,Direct 0.1 mg/dL (0.0-0.2); Bilirubin,Indirect 0.3 mg/dL (0.0-1.0); Bilirubin,Total 0.4 mg/dL (0.3-1.0); Calcium 8.4 mg/dL (8.6-10.3); Globulin 1.9 g/dL (2.4-3.5); Magnesium 2.5 mg/dL (1.6-2.6); Phosphorous 2.4 mg/dL (2.7-4.5); Potassium 4.4 mEq/L (3.5-5.1); Total Protein 5.1 g/dL (6.4-8.9)
[2022-07-08] MEDS ORDERED: *HR* Digoxin 0.5 MG/2 ML AMPUL IVP ONE (07:28)
[2022-07-08] MEDS: Aspirin Enteric Coated 81 MG Tablet PO SCH (07:41)
[2022-07-08] MEDS: Pantoprazole 40 MG VIAL IVP SCH (07:41)
[2022-07-08] MEDS: Multivit/Ca/Min/Fe/FA 1 TAB TABLET PO SCH (07:41)
[2022-07-08] MEDS: Insulin LISPRO 300 UNITS/3 ML VIAL SUBQ SCH ×4 (07:41→20:49)
[2022-07-08] MEDS: DilTIAZem CD (24hr) 240 MG CAP.ER.24H PO SCH (07:41)
[2022-07-08] MEDS: predniSONE 20 MG TABLET PO SCH (07:41)
[2022-07-08] MEDS ORDERED: IVABRADINE HCL 7.5 MG TABLET PO SCH (11:00)
[2022-07-08] MEDS: Melatonin 3 MG TABLET PO SCH (22:01)
[2022-07-09] MEDS: DilTIAZem 50 MG/50 ML IV.SOLN IVC SCH (03:12)
[2022-07-09 03:15] LABS: Basophils % 0.2 %; Hematocrit 35.3 % (37.5-50.1); Hemoglobin 11.6 g/dL (12.9-16.9); Immature Granulocytes % 1.1 % (0-4); Lymphocytes # 2.6 K/mcL (0.6-4.6); Mean Corpuscular HGB Conc 32.9 g/dL (31.6-35.5); Mean Corpuscular Hemoglobin 28.8 pg (28.0-33.3); Mean Corpuscular Volume 87.6 fL (83.0-100.0); Mean Platelet Volume 11.6 fL (9.4-12.4); Monocytes # 0.9 K/mcL (0.0-1.3); Monocytes % 6.2 %; Neutrophils # 11.5 K/mcL (1.6-8.9); Platelet Count 193 K/mcL (140-400); Red Blood Count 4.03 M/mcL (4.19-5.50); Red Cell Distribution Width 15.3 % (11.5-14.5); Segmented Neutrophils % 75.5 %; White Blood Count 15.2 K/mcL (4.3-11.1)
[2022-07-09 03:37] LABS: Albumin 3.1 g/dL (3.5-5.7); Albumin/Globulin Ratio 1.7 (1.1-2.2); Bilirubin,Direct 0.1 mg/dL (0.0-0.2); Bilirubin,Indirect 0.3 mg/dL (0.0-1.0); Bilirubin,Total 0.4 mg/dL (0.3-1.0); Calcium 8.3 mg/dL (8.6-10.3); Globulin 1.8 g/dL (2.4-3.5); Magnesium 2.5 mg/dL (1.6-2.6); Phosphorous 2.3 mg/dL (2.7-4.5); Potassium 4.1 mEq/L (3.5-5.1); Total Protein 4.9 g/dL (6.4-8.9)
[2022-07-09] MEDS: Ipratropium/Albuterol Neb 3 ML IH SCH ×2 (04:03→10:55)
[2022-07-09] MEDS ORDERED: *HR* Metoprolol 5 MG/5 ML VIAL IVP ONE (04:39)
[2022-07-09] MEDS: Pantoprazole 40 MG VIAL IVP SCH (07:43)
[2022-07-09] MEDS: Aspirin Enteric Coated 81 MG Tablet PO SCH (07:43)
[2022-07-09] MEDS: predniSONE 20 MG TABLET PO SCH (07:43)
[2022-07-09] MEDS: Multivit/Ca/Min/Fe/FA 1 TAB TABLET PO SCH (07:43)
[2022-07-09] MEDS: Insulin LISPRO 300 UNITS/3 ML VIAL SUBQ SCH ×4 (08:47→20:59)
[2022-07-09] MEDS ORDERED: Levalbuterol Neb 1.25 MG/3 ML IH PRN (11:23)
[2022-07-09] MEDS ORDERED: IVABRADINE HCL 7.5 MG TABLET PO SCH ×2 (11:30→12:00)
[2022-07-09] MEDS ORDERED: DilTIAZem CD (24hr) 240 MG CAP.ER.24H PO SCH (12:00)
[2022-07-09] MEDS: Metoprolol XL (24 HR) Succ 50 MG TAB.ER.24H PO SCH ×2 (12:28→21:02)
[2022-07-09] MEDS ORDERED: DilTIAZem CD (24hr) 120 MG CAP.ER.24H PO SCH (17:45)
[2022-07-09] MEDS: Melatonin 3 MG TABLET PO SCH (21:05)
[2022-07-10] MEDS: Aspirin Enteric Coated 81 MG Tablet PO SCH (08:42)
[2022-07-10] MEDS: Metoprolol XL (24 HR) Succ 50 MG TAB.ER.24H PO SCH (08:42)
[2022-07-10] MEDS: predniSONE 20 MG TABLET PO SCH (08:42)
[2022-07-10] MEDS: Multivit/Ca/Min/Fe/FA 1 TAB TABLET PO SCH (08:42)
[2022-07-10] MEDS: Pantoprazole 40 MG VIAL IVP SCH (08:43)
[2022-07-10] MEDS: Insulin LISPRO 300 UNITS/3 ML VIAL SUBQ SCH ×2 (08:52→11:38)
[2022-07-10] MEDS ORDERED: DilTIAZem CD (24hr) 180 MG CAP.ER.24H PO SCH (09:00)
[2022-07-10 11:29] VITALS: BP 128/72; PULSE 156; TEMP 97.5; O2SAT 95
== END 2022-07-10 14:47 | disposition home or self-care (01) | DRG 871 ==
LOC: ICNU 08:04 → EMEROOARM 08:04 → SUATTDRO 15:49 → ICNU 16:00 → 2ANU 07-05 20:50
PROVIDERS: ADMIT Internal Medicine; ATTEND Internal Medicine

== ENCOUNTER 2022-08-21 07:55 | Inpatient (IN) ==
[~2022-08-21 07:55] MED LIST: *HR* Meperidine 25 MG/ML SYRINGE IVP PRN; Albuterol 2.5 MG/3 ML NEBULIZER IH PRN; EPINEPHrine 1 MG/ML VIAL SQ PRN; Famotidine 20 MG/2 ML VIAL IVP PRN; Hydrocortisone Sodium Succ 100 MG/2 ML VIAL IVP PRN
[2022-08-21] MEDS ORDERED: Naloxone 0.4 MG/ML INJ IVP PRN (08:03)
[2022-08-21] MEDS ORDERED: Dextrose Gel 15 GM/37.5 ML TUBE PO PRN ×2 (09:11)
[2022-08-21] MEDS ORDERED: *HR* Dextrose 50 % in Water (Syg) 50 ML SYRINGE IVP PRN (09:11)
[2022-08-21] MEDS ORDERED: D5% in Water 1,000 ML IVC PRN (09:11)
[2022-08-21] MEDS ORDERED: allopurinoL 300 MG TABLET PO SCH (09:15)
[2022-08-21] MEDS ORDERED: Acetaminophen 325 MG TABLET PO ONE (09:15)
[2022-08-21] MEDS: 0.9 % Sodium Chloride 500 ML IVC SCH (09:37)
[2022-08-21] MEDS ORDERED: predniSONE 20 MG TABLET PO SCH (10:00)
[2022-08-21] MEDS ORDERED: RITUXIMAB IV ONE (10:30)
[2022-08-21] MEDS ORDERED: SODIUM CHLORIDE 0.9% IV ONE (10:30)
[2022-08-21] MEDS ORDERED: SODIUM CHLORIDE 0.9% IVPB ONE (10:30)
[2022-08-21] MEDS ORDERED: RITUXIMAB ABBS IVPB ONE (10:30)
[2022-08-21] MEDS ORDERED: Fosaprepitant Dimeglumine 150 MG in 0.9 % Sodium Chloride 250 ML IVPB ONE (15:30)
[2022-08-21] MEDS ORDERED: DOXORUBICIN HCL IVPB ONE (16:30)
[2022-08-21] MEDS ORDERED: VINCRISTINE IVPB ONE (16:30)
[2022-08-21] MEDS ORDERED: ETOPOSIDE IVPB ONE (16:30)
[2022-08-21] MEDS ORDERED: [UNRECOGNIZED DRUG - OTHER] IVPB ONE (16:30)
[2022-08-21] MEDS: Insulin LISPRO 300 UNITS/3 ML VIAL SUBQ SCH ×2 (17:26→17:27)
[2022-08-21] MEDS: 0.9 % Sodium Chloride 1,000 ML IVC SCH (17:27)
[2022-08-21] MEDS: predniSONE 20 MG TABLET PO SCH (18:16)
[2022-08-21] MEDS: OLANZapine 5 MG TAB.RAPDIS PO SCH (20:01)
[2022-08-21] MEDS: allopurinoL 300 MG TABLET PO SCH (20:01)
[2022-08-22] MEDS: 0.9 % Sodium Chloride 1,000 ML IVC SCH ×4 (01:35→23:22)
[2022-08-22] MEDS: *HR* Enoxaparin 40 MG/0.4 ML SYRINGE SQ SCH (06:11)
[2022-08-22] MEDS: predniSONE 20 MG TABLET PO SCH ×2 (08:19→17:17)
[2022-08-22] MEDS: Insulin LISPRO 300 UNITS/3 ML VIAL SUBQ SCH ×3 (08:21→17:19)
[2022-08-22 10:31] LABS: Basophils % 0.2 %; Hematocrit 31.8 % (37.5-50.1); Hemoglobin 10.4 g/dL (12.9-16.9); Immature Granulocytes % 0.9 % (0-4); Lymphocytes # 0.9 K/mcL (0.6-4.6); Lymphocytes % 7.9 %; Mean Corpuscular HGB Conc 32.7 g/dL (31.6-35.5); Mean Corpuscular Hemoglobin 28.9 pg (28.0-33.3); Mean Corpuscular Volume 88.3 fL (83.0-100.0); Mean Platelet Volume 11.1 fL (9.4-12.4); Monocytes # 0.2 K/mcL (0.0-1.3); Monocytes % 1.8 %; Neutrophils # 10.5 K/mcL (1.6-8.9); Platelet Count 274 K/mcL (140-400); Red Cell Distribution Width 14.3 % (11.5-14.5); Segmented Neutrophils % 89.2 %; White Blood Count 11.7 K/mcL (4.3-11.1)
[2022-08-22 10:49] LABS: Alanine Aminotransferase 9 Units/L (7-52); Albumin 3.3 g/dL (3.5-5.7); Albumin/Globulin Ratio 1.7 (1.1-2.2); Alkaline Phosphatase 72 Units/L (34-104); Aspartate Amino Transferase 23 Units/L (13-39); BUN/Creatinine Ratio 22 (6-26); Bilirubin,Total 0.3 mg/dL (0.3-1.0); Blood Urea Nitrogen 17 mg/dL (8-23); Calcium 8.4 mg/dL (8.6-10.3); Carbon Dioxide 28 mEq/L (23-29); Chloride 105 mEq/L (98-107); Glucose 218 mg/dL (70-105); Osmolality,Calculated 284 (280-300); Phosphorous 2.7 mg/dL (2.7-4.5); Potassium 3.3 mEq/L (3.5-5.1); Sodium 133 mEq/L (136-145); Total Protein 5.3 g/dL (6.4-8.9); Uric Acid 3.3 mg/dL (2.3-7.6)
[2022-08-22] MEDS ORDERED: [UNRECOGNIZED DRUG - OTHER] IVPB SCH (15:00)
[2022-08-22] MEDS ORDERED: ETOPOSIDE IVPB SCH (15:00)
[2022-08-22] MEDS ORDERED: VINCRISTINE IVPB SCH (15:00)
[2022-08-22] MEDS ORDERED: DOXORUBICIN HCL IVPB SCH (15:00)
[2022-08-22] MEDS: 0.9 % Sodium Chloride 500 ML IVC SCH ×2 (15:48→17:19)
[2022-08-23] MEDS ORDERED: VINCRISTINE IVPB SCH
[2022-08-23] MEDS ORDERED: [UNRECOGNIZED DRUG - OTHER] IVPB SCH
[2022-08-23] MEDS ORDERED: ETOPOSIDE IVPB SCH
[2022-08-23] MEDS ORDERED: DOXORUBICIN HCL IVPB SCH
[2022-08-23 05:33] LABS: Alanine Aminotransferase 9 Units/L (7-52); Albumin 2.9 g/dL (3.5-5.7); Albumin/Globulin Ratio 1.7 (1.1-2.2); Alkaline Phosphatase 61 Units/L (34-104); Aspartate Amino Transferase 15 Units/L (13-39); BUN/Creatinine Ratio 34 (6-26); Bilirubin,Total 0.2 mg/dL (0.3-1.0); Blood Urea Nitrogen 26 mg/dL (8-23); Calcium 8.1 mg/dL (8.6-10.3); Carbon Dioxide 27 mEq/L (23-29); Chloride 110 mEq/L (98-107); Globulin 1.7 g/dL (2.4-3.5); Glucose 157 mg/dL (70-105); Osmolality,Calculated 298 (280-300); Phosphorous 2.6 mg/dL (2.7-4.5); Potassium 3.8 mEq/L (3.5-5.1); Sodium 140 mEq/L (136-145); Total Protein 4.6 g/dL (6.4-8.9); Uric Acid 4.1 mg/dL (2.3-7.6)
[2022-08-23] MEDS: 0.9 % Sodium Chloride 1,000 ML IVC SCH (07:16)
[2022-08-23] MEDS ORDERED: Ringers Solution, Lactated 1,000 ML IVC SCH (08:15)
[2022-08-23] MEDS: predniSONE 20 MG TABLET PO SCH ×2 (09:55→18:14)
[2022-08-23] MEDS ORDERED: SODIUM CHLORIDE 0.9% IV SCH (10:01)
[2022-08-23] MEDS ORDERED: FUROSEMIDE IV SCH (10:01)
[2022-08-23] MEDS ORDERED: Furosemide 40 MG/4 ML VIAL IVP SCH ×2 (10:30→11:30)
[2022-08-23] MEDS: Insulin LISPRO 300 UNITS/3 ML VIAL SUBQ SCH ×2 (12:01→16:29)
[2022-08-23 12:32] LABS: Basophils % 0.1 %; Hematocrit 31.6 % (37.5-50.1); Hemoglobin 10.3 g/dL (12.9-16.9); Immature Granulocytes % 0.9 % (0-4); Lymphocytes # 0.8 K/mcL (0.6-4.6); Lymphocytes % 4.4 %; Mean Corpuscular HGB Conc 32.6 g/dL (31.6-35.5); Mean Corpuscular Hemoglobin 28.9 pg (28.0-33.3); Mean Corpuscular Volume 88.8 fL (83.0-100.0); Mean Platelet Volume 10.3 fL (9.4-12.4); Monocytes # 0.7 K/mcL (0.0-1.3); Monocytes % 4.3 %; Neutrophils # 15.4 K/mcL (1.6-8.9); Platelet Count 266 K/mcL (140-400); Red Blood Count 3.56 M/mcL (4.19-5.50); Red Cell Distribution Width 14.6 % (11.5-14.5); Segmented Neutrophils % 90.3 %; White Blood Count 17.1 K/mcL (4.3-11.1)
[2022-08-23] MEDS: *HR* Enoxaparin 40 MG/0.4 ML SYRINGE SQ SCH (14:53)
[2022-08-23] MEDS: Furosemide 40 MG/4 ML VIAL IVP SCH (16:31)
[2022-08-23] MEDS: 0.9 % Sodium Chloride 500 ML IVC SCH (16:53)
[2022-08-24] MEDS: OLANZapine 5 MG TAB.RAPDIS PO SCH ×2 (04:00→20:13)
[2022-08-24] MEDS: allopurinoL 300 MG TABLET PO SCH ×2 (04:00→20:13)
[2022-08-24 04:13] LABS: Basophils % 0.1 %; Hematocrit 29.1 % (37.5-50.1); Hemoglobin 9.8 g/dL (12.9-16.9); Immature Granulocytes % 0.5 % (0-4); Lymphocytes # 0.6 K/mcL (0.6-4.6); Lymphocytes % 6.1 %; Mean Corpuscular HGB Conc 33.7 g/dL (31.6-35.5); Mean Corpuscular Hemoglobin 29.2 pg (28.0-33.3); Mean Corpuscular Volume 86.6 fL (83.0-100.0); Mean Platelet Volume 10.4 fL (9.4-12.4); Monocytes # 0.2 K/mcL (0.0-1.3); Monocytes % 1.8 %; Neutrophils # 9.6 K/mcL (1.6-8.9); Platelet Count 253 K/mcL (140-400); Red Blood Count 3.36 M/mcL (4.19-5.50); Red Cell Distribution Width 14.3 % (11.5-14.5); Segmented Neutrophils % 91.5 %; White Blood Count 10.5 K/mcL (4.3-11.1)
[2022-08-24 04:37] LABS: Alanine Aminotransferase 14 Units/L (7-52); Albumin/Globulin Ratio 1.5 (1.1-2.2); Alkaline Phosphatase 61 Units/L (34-104); Aspartate Amino Transferase 17 Units/L (13-39); BUN/Creatinine Ratio 39 (6-26); Bilirubin,Total 0.4 mg/dL (0.3-1.0); Blood Urea Nitrogen 30 mg/dL (8-23); Calcium 8.1 mg/dL (8.6-10.3); Carbon Dioxide 29 mEq/L (23-29); Chloride 106 mEq/L (98-107); Glucose 152 mg/dL (70-105); Osmolality,Calculated 299 (280-300); Phosphorous 3.2 mg/dL (2.7-4.5); Potassium 3.5 mEq/L (3.5-5.1); Sodium 140 mEq/L (136-145); Uric Acid 5.5 mg/dL (2.3-7.6)
[2022-08-24] MEDS: *HR* Enoxaparin 40 MG/0.4 ML SYRINGE SQ SCH (04:51)
[2022-08-24] MEDS: predniSONE 20 MG TABLET PO SCH ×2 (08:40→15:28)
[2022-08-24] MEDS: Furosemide 40 MG/4 ML VIAL IVP SCH (08:40)
[2022-08-24] MEDS: Insulin LISPRO 300 UNITS/3 ML VIAL SUBQ SCH ×3 (10:28→19:10)
[2022-08-24] MEDS: 0.9 % Sodium Chloride 500 ML IVC SCH (14:14)
[2022-08-24] MEDS ORDERED: Hydrocortisone Sodium Succ 100 MG/2 ML VIAL IVP PRN (14:30)
[2022-08-24] MEDS ORDERED: EPINEPHrine 1 MG/ML VIAL SQ PRN (14:30)
[2022-08-24] MEDS ORDERED: Famotidine 20 MG/2 ML VIAL IVP PRN (14:30)
[2022-08-24] MEDS ORDERED: 0.9 % Sodium Chloride 500 ML IVC SCH (14:30)
[2022-08-24] MEDS ORDERED: Albuterol 2.5 MG/3 ML NEBULIZER IH PRN (14:30)
[2022-08-24] MEDS ORDERED: ETOPOSIDE IVPB SCH (15:30)
[2022-08-24] MEDS ORDERED: [UNRECOGNIZED DRUG - OTHER] IVPB SCH (15:30)
[2022-08-24] MEDS ORDERED: DOXORUBICIN HCL IVPB SCH (15:30)
[2022-08-24] MEDS ORDERED: VINCRISTINE IVPB SCH (15:30)
[2022-08-24 20:03] VITALS: BP 164/79; PULSE 78; TEMP 97.7; O2SAT 95
[2022-08-24] MEDS ORDERED: Acyclovir 200 MG CAPSULE PO SCH (21:00)
[2022-08-24] MEDS ORDERED: Furosemide 20 MG/2 ML VIAL IVP SCH (21:00)
== END 2022-08-24 23:59 | disposition other institution (70) | DRG 847 ==
LOC: 3ANU 07:59 → SUATTDRO 07:59 → 3ANU 08-22 02:42
PROVIDERS: ADMIT Internal Medicine; ATTEND Internal Medicine